=== PATIENT | female | born 1980 | race American Indian/Alaskan Native ===

== ENCOUNTER 2018-01-10 19:52 | Emergency (ER) | payer MEDICAID ==
[2018-01-11] MEDS ORDERED: CATAPRES PO ONE (00:01)
--- NOTE | 2018-01-11 00:05 | Emergency Department Report ---
ED General Adult HPI - General Chief complaint: Extremity Injury, Upper Stated complaint: LT RINGER FINGER SWOLLEN Time Seen by Provider: 01/10/18 23:55 Source: patient Mode of arrival: Ambulatory Limitations: No Limitations - History of Present Illness Initial comments: Patient is 37 years old female presented with 2 complaints. Patient stated that she is out of her blood pressure medicine for the last 3 weeks and she does not know what blood pressure medicine she is taking. Patient blood pressure in the ER is 200/121. Patient denied any headache, chest pain, shortness of breath, weakness numbness or tingling sensation. Patient denied any bowel or bladder incontinence. Second complaint patient stated that she jammed her ring fingers on both hands 2 days ago she's complaining about bilateral ring finger pain. - Related Data Home Medications Medication Instructions Recorded Confirmed Last Taken No Known Home Medications [No 12/30/15 12/30/15 Unknown Reported Home Medications] Allergies Allergy/AdvReac Type Severity Reaction Status Date / Time No Known Allergies Allergy Verified 01/10/18 19:57 ED Review of Systems ROS: Stated complaint: LT RINGER FINGER SWOLLEN Other details as noted in HPI Comment: All other systems reviewed and negative Constitutional: denies: chills, fever Respiratory: denies: cough, shortness of breath, SOB with exertion Cardiovascular: denies: chest pain, palpitations Gastrointestinal: denies: abdominal pain, nausea, vomiting, diarrhea Neurological: denies: headache, weakness, numbness, paresthesias, confusion, abnormal gait, vertigo ED Past Medical Hx - Past Medical History Hx Hypertension: Yes Hx Arthritis: Yes (billateral knees) Additional medical history: OBESITY - Surgical History Additional Surgical History: HERNIA REPAIR - Social History Smoking Status: Current Every Day Smoker Substance Use Type: None - Medications Home Medications: Home Medications Medication Instructions Recorded Confirmed Last Taken Type No Known Home Medications [No 12/30/15 12/30/15 Unknown History Reported Home Medications] ED Physical Exam - General Limitations: No Limitations General appearance: alert, in no apparent distress - Head Head exam: Present: atraumatic, normocephalic, normal inspection - Eye Eye exam: Present: normal appearance - ENT ENT exam: Present: normal exam, normal orophraynx - Neck Neck exam: Present: normal inspection, tenderness, full ROM. Absent: meningismus, lymphadenopathy - Respiratory Respiratory exam: Present: normal lung sounds bilaterally. Absent: respiratory distress, wheezes, rales, rhonchi, chest wall tenderness, decreased breath sounds, prolonged expiratory - Cardiovascular Cardiovascular Exam: Present: regular rate, normal rhythm, normal heart sounds - GI/Abdominal GI/Abdominal exam: Present: soft, normal bowel sounds. Absent: distended, tenderness, guarding, rebound, rigid, organomegaly, mass, bruit, pulsatile mass - Extremities Exam Extremities exam: Present: other (bilateral rings finger with mild swelling, no deformity.) - Back Exam Back exam: Present: normal inspection, full ROM. Absent: tenderness, CVA tenderness (R), CVA tenderness (L), muscle spasm, paraspinal tenderness, vertebral tenderness, rash noted - Neurological Exam Neurological exam: Present: alert, oriented X3, CN II-XII intact, normal gait - Skin Skin exam: Present: warm, intact, normal color ED Course Vital Signs 01/10/18 01/10/18 19:58 23:50 Temperature 98.3 F Pulse Rate 84 83 Respiratory 18 18 Rate Blood Pressure 200/121 O2 Sat by Pulse 99 Oximetry Critical care attestation.: If time is entered above; I have spent that time in minutes in the direct care of this critically ill patient, excluding procedure time. ED Disposition Clinical Impression: Hypertension, Hand contusion Disposition: -01 TO HOME OR SELFCARE Is pt being admited?: No Condition: Stable Instructions: Hypertension (ED), Contusion in Adults (ED) Referrals: PRIMARY CARE, [Primary Care Provider] - 3-5 Days
--- NOTE | 2018-01-11 00:27 | XRay Report ---
FINAL REPORT EXAM: XR FINGER(S) 2+V BILAT HISTORY: ring fingers injury TECHNIQUE: Three views of each ring finger were obtained. FINDINGS: There is no evidence of fracture or soft tissue injury bilaterally. There is mild marginal spurring along the dorsal margin of the distal phalanx of the left ring finger. IMPRESSION: No acute process involving either ring finger.
[2018-01-11 01:58] VITALS: BP 148/109
== END 2018-01-11 01:58 | disposition home or self-care (01) ==
LOC: ED 19:52
DX: S60.042A Contusion of left ring finger without damage to nail, initial encounter (principal); I10 Essential (primary) hypertension; M19.90 Unspecified osteoarthritis, unspecified site; F17.200 Nicotine dependence, unspecified, uncomplicated; W23.0XXA Caught, crushed, jammed, or pinched between moving objects, initial encounter; Y93.89 Activity, other specified; Y92.89 Other specified places as the place of occurrence of the external cause; Y99.8 Other external cause status
CPT/HCPCS: 99283